=== PATIENT | male | born 1945 | race Caucasian/White ===

== ENCOUNTER 2021-04-02 13:54 | Observation (INO) | payer OTHER ==
[2021-04-02 14:58] VITALS: TEMP 97.8; BMI 37.2
[2021-04-02 15:54] LABS: HEMATOCRIT 43.1 % (35.4-49); HEMOGLOBIN 13.7 GM/dL (11.7-16.9); LYMPH % 30.3 % (8-40); MCH 27.5 pg (25.7-33.7); MCHC 31.8 g/dl (32.0-35.9); MEAN CELL VOLUME 86.6 fl (80-96); MEAN PLT VOLUME 8.9 fl (7.5-11.1); MONO % 9.9 % (3.8-10.2); NEUT % 50.8 % (42.8-82.8); PLATELET COUNT 299 10^3/uL (134-434); RBC 4.98 M/mm3 (4.00-5.60); RDW 14.7 % (11.9-15.9); WHITE BLOOD COUNT 9.4 K/mm3 (4.0-10.0)
[2021-04-02 16:00] LABS: INR 1.09 (0.83-1.09); PROTHROMBIN TIME (PATIENT) 12.5 SEC (9.7-13.0)
[2021-04-02 16:06] LABS: CALCIUM 9.6 mg/dL (8.5-10.1)
[2021-04-02 16:07] LABS: ALBUMIN 3.6 g/dl (3.4-5.0); BLOOD UREA NITROGEN 22.9 mg/dL (7-18); MAGNESIUM 2.4 mg/dL (1.8-2.4)
[2021-04-02 16:10] LABS: CREATININE 1.1 mg/dL (0.55-1.3)
[2021-04-02 16:11] LABS: BILIRUBIN,TOTAL 0.6 mg/dL (0.2-1)
[2021-04-02 16:12] LABS: TOT PROT 7.3 g/dl (6.4-8.2)
[2021-04-02] MEDS ORDERED: ACETAMINOPHEN 325 MG TABLET (FP) PO ONE (16:27)
[2021-04-02] MEDS ORDERED: LACTATED RINGERS SOLUTION 1000 ML INFUS.BAG IV ONE (16:29)
[2021-04-02] MEDS ORDERED: ACETAMINOPHEN 325 MG TABLET (FP) ONE ×2 (16:34→16:35)
[2021-04-02 17:55] VITALS: BP 174/77; PULSE 54
[2021-04-02 18:20] LABS: EPI CELLS 11 /uL (0-25.1); HYALINE CASTS 6 /uL (0-3.1); URINE APPEARANCE CLEAR; URINE BACTERIA 2 /uL (0-1359); URINE BILIRUBIN NEGATIVE (NEGATIVE); URINE COLOR DK YELLOW; URINE GLUCOSE (UA) NEGATIVE (NEGATIVE); URINE KETONE TRACE (NEGATIVE); URINE LEUK ESTERASE NEGATIVE (NEGATIVE); URINE NITRITE NEGATIVE (NEGATIVE); URINE PROTEIN 1+ (NEGATIVE); URINE RBC 7 /uL (0-23.9); URINE UROBILINOGEN 0.2 mg/dL (0.2-1.0); URINE WBC 13 /uL (0-25.8)
== END 2021-04-02 22:45 | disposition left against medical advice (07) ==
LOC: JER 13:54 → JERBED 16:12
PROVIDERS: ADMIT Internal Medicine; ATTEND Internal Medicine
PROC: 3E0337Z Introduction of Electrolytic and Water Balance Substance into Peripheral Vein, Percutaneous Approach (ICD-10-PCS; principal; 2021-04-02)
DX: M25.559 Pain in unspecified hip (principal); W18.39XA Other fall on same level, initial encounter; Y93.89 Activity, other specified; Y92.002 Bathroom of unspecified non-institutional (private) residence as the place of occurrence of the external cause; J45.909 Unspecified asthma, uncomplicated; I25.10 Atherosclerotic heart disease of native coronary artery without angina pectoris; I11.9 Hypertensive heart disease without heart failure; K92.2 Gastrointestinal hemorrhage, unspecified; M10.9 Gout, unspecified; R26.81 Unsteadiness on feet; E66.9 Obesity, unspecified; Z68.37 Body mass index [BMI] 37.0-37.9, adult; Z88.5 Allergy status to narcotic agent
CPT/HCPCS: 36415; 70450-TC; 71045-TC-FY; 72125-TC; 72148-TC; 72170-TC-FY; 72192-TC; 73502-TC-RT-FY; 73562-TC-RT-FY; 73590-TC-RT-FY; 80053; 81003; 82550; 83735; 84484; 85025; 85610; 85730; 86850; 86900; 86901; 87086; 93005; 93010; 99285-25; G0378